=== PATIENT | male | born 1950 | race Caucasian/White ===

== ENCOUNTER 2017-02-02 10:17 | Day surgery (SDC) | payer OTHER ==
[~2017-02-02] VITALS: Ht 177.8 cm; Wt 89.0 kg
[~2017-02-02 10:17] MED LIST: AMLODIPINE BES2.5 MG PO; CALCIUM 600 +1 EA16 PO; DAILY VALUE1 EACH PO; HYDROCHLOROTH12.5 M3 PO; LISINOPRIL10 MG PO; LO-DOSE ASPIRIN81 M2 PO; LOVASTATIN20 MG PO; METFORMIN HCL500 MG PO; PRAVASTATIN SOD40 MG PO
[2017-02-02 11:00] LABS: POINT-OF-CARE METER ID UU13113696
== END 2017-02-02 20:45 | disposition home or self-care (01) ==
LOC: CATH 10:17
PROVIDERS: Internal Medicine Cardiovascular Disease
DX: I25.10 Atherosclerotic heart disease of native coronary artery without angina pectoris (principal); I10 Essential (primary) hypertension; E78.2 Mixed hyperlipidemia; E11.9 Type 2 diabetes mellitus without complications; Z87.891 Personal history of nicotine dependence
CPT/HCPCS: 82948; C1769; C1887; J0153; J1644; J2250; J3010; J7050